=== PATIENT | female | born 1960 | race Caucasian/White ===

== ENCOUNTER 2021-09-25 12:31 | Emergency (ER) | payer BC ==
[~2021-09-25] VITALS: Ht 170.2 cm; Wt 79.4 kg
[~2021-09-25 12:31] MED LIST: ARMOUR THYROID60 M1 PO; IBUPROFEN 800800 MG PO
[2021-09-25 12:45] VITALS: BP 147/82
[2021-09-25] MEDS ORDERED: PREDNISONE 20 M20 MG PO (13:13)
[2021-09-25] MEDS ORDERED: CEPHALEXIN500 MG PO (13:13)
[2021-09-25 14:23] LABS: ABSOLUTE NEUTROPHILS 5.3 thou/uL (1.4-8.2); BASOPHILS 0.9 % (0.0-2.0); EOSINOPHILS 1.6 % (0.0-3.0); HEMOGLOBIN 13.1 gm/dL (12.0-15.0); LYMPHOCYTES 19.6 % (24.0-44.0); MCH 31.7 pg (26.0-34.0); MCHC 35.4 g/dL (28.0-37.0); MCV 89.6 fL (80.0-100.0); MONOCYTES 9.6 % (1.0-8.0); PLATELET COUNT 304 thou/uL (150-400); POLYS 68.3 % (36.0-66.0); RBC 4.13 mil/uL (4.20-5.00); RDW 12.4 % (10.5-14.5); WBC 7.8 thou/uL (4.0-11.0)
== END 2021-09-25 14:44 | disposition home or self-care (01) ==
LOC: ER 12:31
PROVIDERS: Emergency Medicine
DX: L03.211 Cellulitis of face (principal); E03.9 Hypothyroidism, unspecified; Z90.89 Acquired absence of other organs; Z79.899 Other long term (current) drug therapy